=== PATIENT | female | born 1985 | race Caucasian/White ===

== ENCOUNTER 2020-08-09 10:34 | Emergency (ER) | payer OTHER ==
[2020-08-09] MEDS ORDERED: ONDANSETRON HCL INJ/PF 4 MG/2 ML SDV IV ONE (10:45)
[2020-08-09] MEDS ORDERED: NORMAL SALINE 1000 ML 1,000 ML IV ONE (10:46)
--- NOTE | 2020-08-09 10:49 | ER Document Report ---
ED Medical Screen (RME) - General Chief Complaint: Low Blood Sugar Stated Complaint: SEIZURE/LOW BLOOD SUGAR Time Seen by Provider: 08/09/20 10:40 Notes: Patient presents with a friend after having witnessed seizure-like activity. Patient had been drinking yesterday evening and got up this morning got a shower and then complained of feeling as though her blood sugar was dropping and feeling lightheaded. Patient had a seizure and then since then has had nausea with vomiting x6 episodes. Patient allowing her friend to answer majority of questions during the interview although patient is able to speak. Patient complains only of neck discomfort at this time. Patient's friend states that at no time was there any injury or fall seizure-like activity occurred with her lying on a bed. I have greeted and performed a rapid initial assessment of this patient. A comprehensive ED assessment and evaluation of the patient, analysis of test results and completion of the medical decision making process will be conducted by additional ED providers. Physical Exam - Vital signs Vitals: Temp Pulse Resp BP Pulse Ox 97.9 F 78 20 169/96 H 99 08/09/20 10:38 08/09/20 10:38 08/09/20 10:38 08/09/20 10:38 08/09/20 10:38 - General General appearance: Alert Notes: Patient allows friend to answer majority of questions although he is not aware of patient's complaint history, patient will reluctantly answer questions after repeated questioning - Neurological [place] Coma Scale Eye Opening: Spontaneous Mark[place] Coma Scale Verbal: Oriented [place] Coma Scale Motor: Obeys Commands [place] Coma Scale Total: 15 Course - Vital Signs Vital signs: Temp Pulse Resp BP Pulse Ox 97.9 F 78 20 169/96 H 99 08/09/20 10:38 08/09/20 10:38 08/09/20 10:38 08/09/20 10:38 08/09/20 10:38
--- NOTE | 2020-08-09 11:38 | ER Document Report ---
ED General - General Chief Complaint: Probable Seizure Stated Complaint: SEIZURE/LOW BLOOD SUGAR Time Seen by Provider: 08/09/20 10:40 Primary Care Provider: [facility] [Outside] - Follow up in 3-5 days Notes: 35-year-old female presents with seizure activity. She drank last night and was staying with her friends because he wanted to drive home, she went to sleep woke up this morning took a shower felt pale and dizzy and then had about 10 minutes of convulsive activity with altered mental status. Apparently she came right out of it and said she want to go to work but then they laid her back down. He checked her blood pressure and it was elevated. She was pale and slightly sweaty. She is now sleepy. Cannot give a history. The friend were at the bedside who is very reliable and took her blood pressure said it was 180 systolic. He denies that she did any other substances last night just drink. - Related Data Allergies/Adverse Reactions: morphine Allergy (Verified 08/09/20 11:13) Past Medical History - General Information source: Patient - Social History Smoking Status: Never Smoker Chew tobacco use (# tins/day): No Frequency of alcohol use: Social Drug Abuse: None Family History: None Review of Systems - Review of Systems Notes: REVIEW OF SYSTEMS Altered PHYSICAL EXAMINATION General: No acute distress, well-nourished Head: Atraumatic, normocephalic ENT: Mouth normal, oropharynx moist, no exudates or tonsillar enlargement no tongue or lip trauma. Eyes: Conjunctiva normal, pupils equal, lids normal Neck: No JVD, supple, no guarding CVS: Normal rate, regular rhythm, no murmurs Resp: No resp distress, equal and normal breath sounds bilaterally GI: Nondistended, soft, no tenderness to palpation, no rebound or guarding Ext: No deformities, no edema, normal range of motion in upper and lower ext Back: No CVA or midline TTP Skin: No rash, warm Lymphatic: No lymphadeopathy noted Neuro: But arouses to voice. Slurred speech follows commands left lower extremi ties. Physical Exam - Vital signs Vitals: Temp Pulse Resp BP Pulse Ox 97.9 F 78 20 169/96 H 99 08/09/20 10:38 08/09/20 10:38 08/09/20 10:38 08/09/20 10:38 08/09/20 10:38 Course - Re-evaluation Re-evalutation: 08/09/20 11:38 Versus syncope after alcohol We will give fluids get labs and EKG etc. Will scan head as well Labs normal. EKG nonspecific but no stigmata of arrhythmia preexcitation or RI/PE. Possibly congenital versus LVH. Do not believe this requires further follow-up or admission at this time [employer] imaging negative Mental status improved I have discussed with the patient there likely diagnosis, aftercare plan, follow-up plans and my usual and customary return precautions. They verbalized understanding of this. 08/09/20 12:23 08/09/20 14:04 Work-up negative reassessed patient 2:05 PM. Awake and alert with mild headache. Says she had one prior seizure with head trauma and that she drank too much last night. Will not start antiepileptics but will refer to primary care. Patient is now stable for discharge home. - Vital Signs Vital signs: Temp Pulse Resp BP Pulse Ox 97.9 F 78 20 169/96 H 99 08/09/20 10:38 08/09/20 10:38 08/09/20 10:38 08/09/20 10:38 08/09/20 10:38 - Laboratory Results Result Diagrams: 08/09/20 11:20 08/09/20 11:20 Laboratory Results Interpreted: 08/09/20 08/09/20 11:20 11:20 WBC 10.7 H Glucose 111 H Critical Laboratory Results Reviewed: No Critical Results - Radiology Results Critical Radiology Results Reviewed: No Critical Results - EKG Interpretation by Me EKG shows normal: Sinus rhythm Rate: Normal Rhythm: NSR Voltage: Consistent with LVH When compared to previous EKG there are: Previous EKG unavailable - No ST elevation no ST depression no preexcitation, no long QT, no Brugada Discharge - Discharge Clinical Impression: Loss of consciousness Condition: Good Disposition: HOME, SELF-CARE Instructions: New Seizure ([facility]), Syncopal Episode ([facility]) Additional Instructions: Not clear whether he had a seizure or fainting episode but all your testing today is normal except for some minor changes on your EKG which will require follow-up but are not dangerous at this time Please avoid all alcohol. Please stay well-hydrated. Referrals: [facility] [Outside] - Follow up in 3-5 days
[2020-08-09 11:43] LABS: ABSOLUTE BASOPHILS # (AUTO) 0.1 10^3/uL (0.0-0.2); ABSOLUTE LYMPHOCYTES (AUTO) 1.7 10^3/uL (0.5-4.7); ABSOLUTE MONOCYTES (AUTO) 0.6 10^3/uL (0.1-1.4); ABSOLUTE NEUT (AUTO) 8.2 10^3/uL (1.7-8.2); BASOPHILS % (AUTO) 0.7 % (0-2); EOSINOPHILS % (AUTO) 0.3 % (0-6); HEMATOCRIT 41.4 % (36.0-47.0); HEMOGLOBIN 14.4 g/dL (12.0-15.5); LYMPHOCYTES % (AUTO) 16.1 % (13-45); MEAN CORPUSCULAR HEMOGLOBIN 30.9 pg (27.0-33.4); MEAN CORPUSCULAR HGB CONC 34.7 g/dL (32.0-36.0); MEAN CORPUSCULAR VOLUME 89 fl (80-97); MONOCYTES % (AUTO) 5.8 % (3-13); PLATELET COUNT 288 10^3/uL (150-450); RED BLOOD COUNT 4.64 10^6/uL (3.72-5.28); RED CELL DISTRIBUTION WIDTH 12.9 % (11.5-14.0); SEGMENTED NEUTROPHILS % (AUTO) 77.1 % (42-78); TOTAL CELLS COUNTED % (AUTO) 100 %; WHITE BLOOD COUNT 10.7 10^3/uL (4.0-10.5)
[2020-08-09 12:02] LABS: ALBUMIN 4.5 g/dL (3.5-5.0); ALKALINE PHOSPHATASE 117 U/L (38-126); ANION GAP 9 (5-19); ASPARTATE AMINO TRANSFERASE 24 U/L (14-36); BILIRUBIN,DIRECT 0.2 mg/dL (0.0-0.4); BILIRUBIN,TOTAL 0.6 mg/dL (0.2-1.3); BLOOD UREA NITROGEN 7 mg/dL (7-20); CALCIUM 9.4 mg/dL (8.4-10.2); CARBON DIOXIDE 26 mmol/L (22-30); CHLORIDE 104 mmol/L (98-107); GLUCOSE 111 mg/dL (75-110); POTASSIUM 4.2 mmol/L (3.6-5.0); TOTAL PROTEIN 7.4 g/dL (6.3-8.2)
[2020-08-09 12:06] LABS: ALCOHOL < 10 mg/dL (NONE DETECTED)
--- NOTE | 2020-08-09 12:41 | RADIOLOGY REPORT (SQ) ---
EXAM DESCRIPTION: CT HEAD WITHOUT IMAGES COMPLETED DATE/TIME: 08/09/2020 12:31 pm REASON FOR STUDY: seizure COMPARISON: None. TECHNIQUE: Axial images acquired through the brain without intravenous contrast. Images reviewed wi th bone, brain and subdural windows. Additional sagittal and coronal reconstructions were generated. Images stored on PACS. All CT scanners at this facility use dose modulation, iterative reconstruction, and/or weight based d osing when appropriate to reduce radiation dose to as low as reasonably achievable (ALARA). [facility]: Dose Right [facility]: CareDose [facility]: Dose Right [facility]: Teradose 4D [facility]: TabSprint RADIATION DOSE: CT Rad equipment meets quality standard of care and radiation dose reduction techniq ues were employed. CTDIvol: 53.2 mGy. DLP: 1097 mGy-cm. mGy. LIMITATIONS: None. FINDINGS: VENTRICLES: Normal size and contour. CEREBRUM: No masses. No hemorrhage. No midline shift. No evidence for acute infarction. Normal gra y/white matter differentiation. No areas of low density in the white matter. CEREBELLUM: No masses. No hemorrhage. No alteration of density. No evidence for acute infarction. EXTRAAXIAL SPACES: No fluid collections. No masses. ORBITS AND GLOBE: No intra- or extraconal masses. Normal contour of globe without masses. CALVARIUM: No fracture. PARANASAL SINUSES: No fluid or mucosal thickening. SOFT TISSUES: No mass or hematoma. OTHER: No other significant finding. IMPRESSION: NORMAL BRAIN CT WITHOUT CONTRAST. EVIDENCE OF ACUTE STROKE: NO. COMMENT: Quality ID # [id number]: Final reports with documentation of one or more dose reduction techniques (e.g., Automated exposure control, adjustment of the mA and/or kV according to patient size, use of iterative reconstruction technique) TECHNICAL DOCUMENTATION: JOB ID: [id number] [employer]- All Rights Reserved Reading location - IP/workstation name: [email or web address]
[2020-08-09] MEDS ORDERED: IBUPROFEN 600 MG TABLET PO ONE (13:49)
[2020-08-09 14:18] VITALS: BP 143/80
--- NOTE | 2020-08-09 17:57 | EKG REPORT ---
SEVERITY:- ABNORMAL ECG - SINUS RHYTHM INFERIOR Q WAVES, PROBABLY NORMAL VARIATION NONSPECIFIC T ABNORMALITIES, INFERIOR LEADS : Confirmed by: Marlon Rojas MD 09-Aug-2020 17:56:24
== END 2020-08-09 14:14 | disposition home or self-care (01) ==
LOC: ER 10:34
DX: R55 Syncope and collapse (principal); R51.9 Headache, unspecified; R42 Dizziness and giddiness; R41.82 Altered mental status, unspecified; Z88.6 Allergy status to analgesic agent
CPT/HCPCS: 93005; 99285; 96361; 96374; 36415; 82962; 80307; 83690; 84703; 85025; 80053; 70450; 93010; J2405; J7030